=== PATIENT | female | born 1985 | race Two or more races ===

== ENCOUNTER 2025-10-21 14:05 | Emergency (ER) | payer MEDICAID, SELFPAY ==
[2025-10-21 14:06] VITALS: BMI 28.5
[2025-10-21 14:38] VITALS: BP 113/75; PULSE 66; RESP 16; TEMP 36.6; O2SAT 99
--- NOTE | 2025-10-21 14:52 | XR_ITS ---
Examination: CT brain head without contrast. 2-D sagittal coronal reconstructions Date and time of exam: October 21, 2025, 1545 hours INDICATIONS: Ground-level fall today with injury to the head, head pain CTDI: vol (mGy): 46.4 DLP: (mGycm): 895 Technique: Multiple CT axial sections of the brain have been obtained, 5 mm slice thickness. Contrast has not been administered. 2-D sagittal, coronal reconstructions have been obtained Low dose protocols were performed. One or more of the following dose reduction techniques were used; automated exposure control, adjustment of the mA and/or KV according to patient size, use of iterative reconstruction technique. Findings: No significant ventricular enlargement. Intra-axial or extra-axial hemorrhage density is not seen. No mass effect or midline shift Basal cisterns are not remarkable. Fourth ventricle is midline. Cranial vault intact. Impression: Negative for acute hemorrhage, mass effect or midline shift
--- NOTE | 2025-10-21 14:52 | XR_ITS ---
Examination: CT cervical spine without contrast 2-D sagittal reconstructions 2-D coronal reconstructions 3-D reconstructions. Exam date and time: October 21, 2025, 1543 hours INDICATIONS: Ground-level fall today with injury to the neck, neck pain CTDI:vol (mGy) 4.2 DLP: (mGycm) 243 Technique: Multiple 2 mm axial sections of the cervical spine have been obtained. The coronal and sagittal reconstructions have been obtained. 3-D reconstructions have been obtained. Low dose protocols were performed. One or more of the following dose reduction techniques were used; automated exposure control, adjustment of the mA and/or KV according to patient size, use of iterative reconstruction technique. Findings: Axial sections demonstrate intact base of the skull. C1 exhibit satisfactory relationship to the odontoid. No acute cervical vertebral body fracture seen. Alignment posterior spinous processes satisfactory. Impression: No acute cervical fracture.
--- NOTE | 2025-10-21 14:57 | PD.EDHEAD ---
ED Head Injury RME/HPI General Chief complaint: Head Injury Stated complaint: HEAD PAIN S/P FALL, DENIES LOC Time Seen by Provider: 10/21/25 14:37 Arrival date/time: 10/21/25 14:05 This is a 40-year-old female that comes into the emergency room after slipping and falling in the shower. Patient states that she hit the back of her head and neck. Patient denies any loss of consciousness. Patient denies any upper and lower back pain. Related Data Allergies Allergy/AdvReac Type Severity Reaction Status Date / Time No Known Allergies Allergy Verified 10/21/25 14:09 Review of Systems Review of Systems Systems Reviewed: All systems reviewed, normal except as documented Past Medical History Past Medical History Comments PMH COMMENT: Denies ED Exam Narrative Physical exam: VITAL SIGNS: Reviewed. GENERAL APPEARANCE: Alert and interactive, follows commands, no acute distress HEAD AND FACE: Non-traumatic. ENT: PERRL, conjuctiva pink and clear, eyelid no trauma, Mucous membrane moist. NECK: Supple, nontender, no nuchal rigidity. CHEST: No tenderness, no crepitus, no paradoxical movement, no retractions. LUNGS: breathing even and unlabored HEART: Regular rate, cap refill less than 2 seconds ABDOMEN: Soft, nondistended, no guarding, nontender, no rebound, no masses, NEUROLOGICAL: Gross motor function intact sensory function intact, Appropriate for age. MUSCULOSKELETAL: low back nontender, full range of motion. no midline tenderness, no meningismus, no step offs EXTREMITIES: No redness no swelling no skin breakdown on bilateral foot and leg. Distal neurovascular status intact bilateral foot SKIN: Color pink, dry Course Quality Measures none Orders Category Date Time Status Apply soft cervical collar NOW Care 10/21/25 14:[address] cervical spine wo con Stat Exams 10/21/25 14:[address] head/brain wo con Stat Exams 10/21/25 14:52 Completed Acetaminophen Tab [Tylenol ES Tab] Med 10/21/25 17:35 Discontinued 1,000 mg PO X1 ONE Ibuprofen Tab [Motrin Tab] Med 10/21/25 17:35 Discontinued 800 mg PO X1 ONE Ondansetron Odt [Zofran Odt] Med 10/21/25 17:37 Discontinued 4 mg PO X1 ONE Vital Signs Vital signs: Vital Signs Temperature 98 F 10/21/25 14:38 Pulse Rate 66 10/21/25 14:38 Respiratory Rate 16 10/21/25 14:38 Blood Pressure 113/75 10/21/25 14:38 Pulse Oximetry (%) 99 10/21/25 14:38 Oxygen Delivery Method Room Air 10/21/25 14:38 Head Injury MDM Narrative MDM Narrative:: ct cervical spine: Findings: Axial sections demonstrate intact base of the skull. C1 exhibit satisfactory relationship to the odontoid. No acute cervical vertebral body fracture seen. Alignment posterior spinous processes satisfactory. Impression: No acute cervical fracture. head injury: Findings: No significant ventricular enlargement. Intra-axial or extra-axial hemorrhage density is not seen. No mass effect or midline shift Basal cisterns are not remarkable. Fourth ventricle is midline. Cranial vault intact. Impression: Negative for acute hemorrhage, mass effect or midline shift Today patient had Ct scans done There was no acute fracture seen. Exam appeared unremarkable. I explained to patient at length that if there was continued pain to this area or worsened to come back to ED or see primary provider for more xrays or further testing such as CT scan or MRI.CT scans are not perfect and sometimes serial films needed. Patient verbalized understanding. Patient states they will follow up with primary provider in 1-2 days or come back to ED if symptoms change or worsen. Patient data External records reviewed:: [facility] previous records Clinical information provided by:: patient Social determinants that could affect healthcare access:: none Patient has the following chronic illnesses:: None How is presenting disease/condition affected by chronic disease/condition?: no chronic disease Evaluation data The following diagnostics were reviewed and interpreted by me:: radiology exam(s) Lab and/or radiology exams considered but not ordered:: See note Interpretation Summary: See note Medications / Prescriptions Medications or Prescriptions considered but not ordered:: See note Medication administrations:: Medication Administration History Discontinued Medications Acetaminophen (Acetaminophen 500 Mg Tablet) 1,000 mg PO X1 ONE Stop: 10/21/25 17:36 Last Admin: 10/21/25 17:56 Dose: 1,000 mg Documented By: Ibuprofen (Ibuprofen Tab 400 Mg Tablet) 800 mg PO X1 ONE Stop: 10/21/25 17:36 Last Admin: 10/21/25 17:54 Dose: 800 mg Documented By: Ondansetron HCl (Ondansetron Odt 4 Mg Tabrap) 4 mg PO X1 ONE; Protocol Stop: 10/21/25 17:38 Last Admin: 10/21/25 17:56 Dose: 4 mg Documented By: See MAR Consultations Consultation(s) initiated? (list below): No Diagnosis Differential diagnosis head injury: concussion without loss of consciousness, epidural hematoma, closed head injury, subarachnoid hematoma and postconcussion syndrome Most likely diagnosis given after review of the tests above:: Head contusion neck contusion Admission Indicated Admission indicated?: not indicated Admission Request Was there a request for admission?: No Disposition Plan Disposition Plan: Discharge Discharge Attestation Discharge Attestation: The patient and all family members were given an opportunity to ask questions and understood the discharge instructions. Discharge instructions specifically effects, indications for sooner follow up or return to the emergency department, and the expected course of current diagnosis. Patient condition: Stable Discharge Plan Plan Patient Disposition: HOME (Self Care) Patient condition on transfer: Stable Prescriptions/Referrals Referrals: No Primary/Family,Physician [Primary Care Provider] - In 1 week Problem List Clinical Impression: Contusion of head, Contusion of neck Patient/Caregiver Discharge Instructions Discharge Activity: activity as tolerated Education Materials: Bruises (Contusions), ED Head Injury (Adult) Additional Instructions: Follow up with primary provider in 1-2 days. Come back to ED if symptoms change or worsen Print Language: Upper Sorbian Stand Alone Forms: Margie Award Info., Patient Portal Info Letter LYNNE/MANJINDER Supervising Physician LYNNE/MANJINDER Supervising Physician: sole
[2025-10-21] MEDS: IBUPROFEN TAB 400 MG TABLET 800 MG PO (17:54)
[2025-10-21] MEDS: ONDANSETRON ODT 4 MG TABRAP PO (17:56)
[2025-10-21] MEDS: ACETAMINOPHEN 500 MG TABLET 1000 MG PO (17:56)
== END 2025-10-21 18:03 | disposition home or self-care (01) ==
PROVIDERS: Emergency Provider Emergency Medicine
DX: S00.93XA Contusion of unspecified part of head, initial encounter (principal); S10.93XA Contusion of unspecified part of neck, initial encounter; W18.2XXA Fall in (into) shower or empty bathtub, initial encounter; Y93.E1 Activity, personal bathing and showering
CPT/HCPCS: 70450; 72125; 99282; Q0162; A9270